=== PATIENT | female | born 1975 | race African-American/Black ===

== ENCOUNTER 2022-03-09 04:24 | Day surgery (SDC) | payer OTHER ==
[2022-03-06 15:52] VITALS: BMI 41.7
[2022-03-09 09:34] VITALS: TEMP 98
[2022-03-09 10:26] VITALS: BP 114/66; PULSE 81
== END 2022-03-09 10:30 | disposition home or self-care (01) ==
LOC: JASU-ENDO 04:24
PROVIDERS: ATTEND Internal Medicine Gastroenterology
PROC: 0DB78ZX Excision of Stomach, Pylorus, Via Natural or Artificial Opening Endoscopic, Diagnostic (ICD-10-PCS; 2022-03-09)
PROC: 0DB38ZX Excision of Lower Esophagus, Via Natural or Artificial Opening Endoscopic, Diagnostic (ICD-10-PCS; principal; 2022-03-09 09:15)
DX: K21.00 Gastro-esophageal reflux disease with esophagitis, without bleeding (principal); K29.50 Unspecified chronic gastritis without bleeding; B96.81 Helicobacter pylori [H. pylori] as the cause of diseases classified elsewhere; E11.9 Type 2 diabetes mellitus without complications; Z79.84 Long term (current) use of oral hypoglycemic drugs
CPT/HCPCS: 81025; 82962; 88305-TC; 88342-TC

== ENCOUNTER 2022-11-06 10:10 | Emergency (ER) | payer OTHER ==
[2022-11-06 10:28] VITALS: BMI 35.6
[2022-11-06] MEDS ORDERED: SODIUM CHLORIDE 0.9% 500 ML INFUS.BAG IV ONE (12:41)
[2022-11-06] MEDS ORDERED: ACETAMINOPHEN 1000 MG/100 ML BAG IVPB ONE (12:41)
[2022-11-06 13:14] LABS: PH,URINE 5.5 (5.0-8.0); URINE APPEARANCE CLEAR; URINE BILIRUBIN NEGATIVE (NEGATIVE); URINE COLOR YELLOW; URINE GLUCOSE (UA) NEGATIVE (NEGATIVE); URINE KETONE NEGATIVE (NEGATIVE); URINE LEUK ESTERASE NEGATIVE (NEGATIVE); URINE NITRITE NEGATIVE (NEGATIVE); URINE PROTEIN NEGATIVE (NEGATIVE); URINE UROBILINOGEN 0.2 mg/dL (0.2-1.0)
[2022-11-06 13:18] LABS: INR 1.15 (0.83-1.09); PROTHROMBIN TIME (PATIENT) 13.3 SEC (9.7-13.0)
[2022-11-06 13:20] LABS: BASO % 0.3 % (0-2.0); EOS % 2.4 % (0-4.5); HEMATOCRIT 26.3 % (32.4-45.2); HEMOGLOBIN 7.7 GM/dL (10.7-15.3); LYMPH % 34.1 % (8-40); MCHC 29.3 g/dl (32.0-36.0); MEAN CELL VOLUME 54.5 fl (80-96); MONO % 20.5 % (3.8-10.2); NEUT % 42.7 % (42.8-82.8); PLATELET COUNT 440 10^3/uL (134-434); RBC 4.83 M/mm3 (3.60-5.2); RDW 19.3 % (11.6-15.6); WHITE BLOOD COUNT 5.4 K/mm3 (4.0-10.0)
[2022-11-06 13:21] LABS: ACTIVATED PTT 27.7 SECONDS (25.2-36.5)
[2022-11-06] MEDS ORDERED: ACETAMINOPHEN INJECTION 100 ML IVPB ONE (13:31)
[2022-11-06 13:42] LABS: ALBUMIN 3.8 g/dl (3.4-5.0); CALCIUM 9.4 mg/dL (8.5-10.1)
[2022-11-06 13:43] LABS: BLOOD UREA NITROGEN 6.3 mg/dL (7-18)
[2022-11-06 13:44] LABS: ANISOCYTOSIS 2+; MACROCYTOSIS 0
[2022-11-06 13:47] LABS: BILIRUBIN,TOTAL 0.6 mg/dL (0.2-1); TOT PROT 8.1 g/dl (6.4-8.2)
[2022-11-06 13:57] LABS: SYPHILIS W/ RPR CONF NON-REACTIVE (NONREACTIVE)
[2022-11-06 14:26] LABS: HIV INTERPRETATION NEGATIVE (NEGATIVE)
[2022-11-06 15:57] VITALS: BP 120/80; PULSE 88; RESP 20; TEMP 98.2
== END 2022-11-06 15:30 | disposition home or self-care (01) ==
LOC: JERFT 10:10 → JER 10:10
PROC: 3E033GC Introduction of Other Therapeutic Substance into Peripheral Vein, Percutaneous Approach (ICD-10-PCS; principal; 2022-11-06)
DX: J09.X2 Influenza due to identified novel influenza A virus with other respiratory manifestations (principal)
CPT/HCPCS: 0241U-QW; 36415; 71046-TC-FY; 80053; 81003; 84484; 84703; 85025; 85610; 85730; 86695; 86696; 86780; 86850; 86900; 86901; 87086; 87389; 87491; 87529; 87591; 93005; 93010; 99285-25

== ENCOUNTER 2023-06-06 12:26 | Day surgery (SDC) | payer OTHER ==
[~2023-06-06 12:26] MED LIST: FERRIC CARBOXYMALTOSE 750 MG in SODIUM CHLORIDE 250 ML IVPB ONE
[2023-06-06 17:54] VITALS: BP 118/70; PULSE 91; RESP 18; TEMP 97.7
== END 2023-06-06 13:55 | disposition home or self-care (01) ==
LOC: JONCNONCHE 12:26 → J7W 12:27 → JONCNONCHE 13:55
PROVIDERS: ATTEND Internal Medicine Hematology & Oncology
PROC: 3E033GC Introduction of Other Therapeutic Substance into Peripheral Vein, Percutaneous Approach (ICD-10-PCS; principal; 2023-06-06)
DX: D50.9 Iron deficiency anemia, unspecified (principal)
CPT/HCPCS: 96365; J1439